=== PATIENT | male | born 1960 | race Caucasian/White ===

== ENCOUNTER 2017-01-20 09:04 | Emergency (ER) | payer OTHER ==
[2017-01-20] MEDS ORDERED: PROMETHAZINE HCL INJ 25 MG in SODIUM CHLORIDE 0.9% 50ML 50 ML IVPB ONE (09:25)
[2017-01-20] MEDS ORDERED: KETOROLAC TROMETHAMINE INJ 60 MG/2 ML VIAL IM ONE (09:25)
[2017-01-20 09:26] VITALS: TEMP 96.9
[2017-01-20] MEDS ORDERED: SODIUM CHLORIDE 0.9% 1000ML 1,000 ML IVS ONE (09:27)
[2017-01-20] MEDS ORDERED: PROMETHAZINE HCL INJ 25 MG/ML VIAL ONE (09:39)
[2017-01-20] MEDS ORDERED: SODIUM CHLORIDE 0.9% 50ML 50 ML ONE (09:39)
--- NOTE | 2017-01-20 10:28 | RAD ---
PROCEDURE: X-ray Chest one view and abdomen three views Clinical History: abd pain with rad to right testicle. Indication: Abdominal pain radiating to the right testicle Comparison: January 12, 2016 Technique: 3.0 views of the abdomen and pelvis and 1.0 view of the chest were done. Findings: There is no gross evidence of free air in the abdomen or the pelvis . The small and large bowel gas pattern does not show any evidence of obstruction, ileus or bowel wall thickening. There is no visualization of radiopaque calculi in the outline of the urinary tract. Small amount of retained fecal material is seen in the proximal large bowel. A benign bone island is seen in the left iliac/ischial bone junction. Degenerative changes are seen in the lower lumbar spine There are no discrete airspace infiltrates or pleural effusions are pneumothoraces. The cardiac and mediastinal silhouette is unremarkable. Impression: There are no acute findings in the chest, abdomen and pelvis Location of Interpretation: [id number] Electronically signed by: Cody Rodney MD 01/20/2017 10:27 AM [employer]
[2017-01-20] MEDS ORDERED: HYDROmorphone HCL INJ 2 MG/ML VIAL IV SCH (11:00)
--- NOTE | 2017-01-20 11:27 | CT ---
PROCEDURE: Abdoment/Pelvis w/o Contrast HISTORY: right testicular pain and hematuria, possible kidney Indication: Evaluation for kidney stones. Right testicular pain Comparison: None Technique: CT of the abdomen and pelvis was done without intravenous contrast. Images were obtained from the lung base to the level of the pubic symphysis in axial plane, followed by orthogonal sagittal and coronal reconstruction. Oral contrast was not given for the study. FINDINGS: Images through the lung bases do not show any focal infiltrates or pleural effusions. The liver, gallbladder, pancreas, spleen and the bilateral adrenal glands appear unremarkable, given the limitation of lack of intravenous contrast. There is right-sided hydroureteronephrosis due to recent passage of a 2 mm calculus seen in the dependent lumen of the urinary bladder on the right side. There is no nephrolithiasis on either side. There is no left-sided hydroureteronephrosis The small bowel appears unremarkable, without any evidence of small bowel obstruction or bowel wall thickening. There is no CT evidence of acute appendicitis, pericecal inflammatory change or ileocecal mesenteric adenitis. The ileocecal junction appears unremarkable. There is no CT evidence of acute colonic diverticulitis or colitis or large bowel obstruction. There is no pathological lymphadenopathy in the retroperitoneum or in the pelvic region. There is no evidence of free fluid or free air in the abdomen or the pelvic region. There is no clinically significant abdominal aortic aneurysm. There is a small fat-containing periumbilical ventral hernia defect. Note is also made of small fat-containing bilateral inguinal hernia defects. The visualized lumbar spine shows grade 1 anterolisthesis of L4 at L5 and degenerative changes at L4/L5 and L5/S1 level. The paravertebral soft tissues are unremarkable. The remainder of the pelvic structures are unremarkable. IMPRESSION: There is right-sided hydroureteronephrosis due to recent passage of a 2 mm calculus seen in the dependent lumen of the urinary bladder on the right side. There is a small fat-containing periumbilical ventral hernia defect. Note is also made of small fat-containing bilateral inguinal hernia defects. Electronically signed by: Cody Rodney MD 01/20/2017 11:27 AM TECHNOLOGY TEACHER
--- NOTE | 2017-01-20 12:00 | ED.PDOC ---
History of Present Illness - General Chief Complaint: Problem Stated Complaint: RIGHT TESTICULAR PAIN Time Seen by Provider: 01/20/17 09:23 Source: patient Exam Limitations: no limitations - History of Present Illness Initial Comments: the patient is a 56-year-old male presenting to the emergency room secondary to pain in his right testicle and radiates up towards the abdomen on the same side. It started approximately 3 AM this morning fairly abruptly. He has not had any kidney stones in the past. He does have a history of prostate cancer with resection. He has not had a new urinary symptoms prior to this. The pain has been fairly severe and fairly constant. No back pain. No previous kidney stones. No syncope or near syncope. Timing/Duration: 4-6 hours Severity: severe Improving Factors: nothing Worsening Factors: nothing Associated Symptoms: diaphoresis, loss of appetite, malaise, nausea/vomiting Allergies/Adverse Reactions: Allergies NO KNOWN ALLERGY Allergy (Verified 01/07/16 09:16) Home Medications: Ambulatory Orders B-Complex Vitamins [B Complex] 1 cap PO DAILY 09/01/15 Brimonidine Tartrate-Timolol M [Combigan 0.2-0.5 %] 1 shelley OP BID 09/01/15 Cranberry (Vaccinium Macrocarp [Cranberry] 300 mg PO DAILY 09/01/15 Eszopiclone [Lunesta] 1 mg PO PRN 09/01/15 Folic Acid,B6,B12 [FOLTX] 1 ea PO DAILY 09/01/15 Glucosamine-Chondroitin [Osteo Bi-Flex Regular Str 250-200 mg] 1 tab PO BID Omeprazole [Prilosec Cap] 20 mg PO BID 09/01/15 Tramadol HCl 50 mg PO PRN 09/01/15 Naproxen 250 mg PO BID #10 tab 01/07/16 Ondansetron Odt [Zofran Odt] 8 mg PO BID #7 tab 01/07/16 Pantoprazole Sodium [Protonix] 40 mg PO ACBK #7 tab 01/07/16 Bifidobacterium Infantis [Align] 8 mg PO BID #30 cap 01/12/16 Linezolid [Zyvox] 600 mg PO BID #14 tab 01/12/16 Ppcqjtixjrpki-Qjyy-Vvichiqicu [Fioricet] 1 ea PO Q8H PRN #21 tab 01/20/17 Cephalexin Monohydrate [Keflex] 500 mg PO Q8H #12 cap 01/20/17 Review of Systems - Review of Systems Constitutional: States: diaphoresis EENTM: States: no symptoms reported Respiratory: States: no symptoms reported Cardiology: States: no symptoms reported Gastrointestinal/Abdominal: States: abdominal pain, nausea, vomiting Genitourinary: States: other - right testicular pain without swelling Musculoskeletal: States: no symptoms reported Skin: States: no symptoms reported Neurological: States: no symptoms reported Endocrine: States: no symptoms reported All other Systems: No Change from Baseline Past Medical History (General) - Patient Medical History Hx Seizures: No Hx Stroke: No Hx Asthma: No Hx of COPD: No Hx Cardiac Disorders: No Hx Congestive Heart Failure: No Hx Pacemaker: No Hx Hypertension: No Hx Diabetes: No Hx Cancer: Yes - PROSTATE Hx MRSA: No MRSA Source:: Wound Surgical History: other - Vaccination History Hx Tetanus, Diphtheria Vaccination: Yes Hx Influenza Vaccination: Yes Hx Pneumococcal Vaccination: Yes - Social History Hx Tobacco Use: No Hx Alcohol Use: No Hx Substance Use: No Hx Substance Use Treatment: No Hx Depression: No Hx Physical Abuse: No Hx Emotional Abuse: No - Female History Patient : No Family Medical History - Family History Mother Living Status: Still Living Hx Family Cancer: Yes Hx Family;Other: aneurysm Physical Exam - Physical Exam General Appearance: Alert, Anxious, Obvious distress Eye Exam: bilateral normal Ears, Nose, Throat: hearing grossly normal, normal ENT inspection, normal pharynx Neck: non-tender, full range of motion, supple, normal inspection Respiratory: chest non-tender, lungs clear, normal breath sounds, no respiratory distress, no accessory muscle use Cardiovascular/Chest: normal peripheral pulses, regular rate, rhythm, no edema Peripheral Pulses: radial,right: 2+, radial,left: 2+, dorsalis pedis,right: 2+, dorsalis pedis,left: 2+, posterior tibialis,right: 2+, posterior tibialis,left: 2+ Gastrointestinal/Abdominal: normal bowel sounds, non tender, soft Rectal Exam: deferred, other - right and left testicles are normal by palpation. Movement of the right testicle does not increase or decrease pain. External phallus appears normal. No discharge. Back Exam: normal inspection, no CVA tenderness, no vertebral tenderness Extremity: normal range of motion, non-tender, normal inspection, no pedal edema , normal capillary refill Neurologic: alert, normal mood/affect, oriented x 3 Skin Exam: normal color Comments: Vital Signs - 24 hr 01/20/17 01/20/17 01/20/17 09:18 10:05 11:20 Temperature 96.9 F L Pulse Rate [LA] 117 H 64 66 Respiratory 16 16 16 Rate Blood Pressure 179/117 177/104 158/103 [LEFT BRACHIAL] O2 Sat by Pulse 96 97 96 Oximetry Progress - Progress Progress: 01/20/17 12:03 the patient is a 56-year-old male presenting with symptoms consistent with right-sided ureterolithiasis. The patient has received IM Toradol along with IV Dilaudid and some IV fluids. CT scan and resolution of the patient's pain is consistent with the patient having just passed a right-sided kidney stone 2 mm in diameter. The patient needs to increase his fluid intake. He can take ibuprofen or Aleve twice daily for the next 2-3 days to help reduce pain. He will also be written for Fioricet for as needed use. Additionally I will place him on Keflex for 3 days to prevent infection of his urinary tract. He has had urosepsis before. Additionally CT scan of the abdomen and pelvis did show small fat-containing bilateral inguinal hernias and a small fat- containing umbilical hernia. He appears to be asymptomatic from these at this time but if symptoms develop in these areas then they may need to be addressed. ER warnings are given for any acute worsening. Keep well hydrated. 01/20/17 12:05 - Results/Orders Results/Orders: CT scan of abdomen and pelvis without contrast shows mild right-sided hydroureteronephrosis with what appears to be a 2 mm stone that is just passed in the bladder. note is also made of small bilateral fat-containing inguinal hernias and a small fat-containing ventral hernia. Laboratory Results - last 24 hr 01/20/17 01/20/17 09:38 09:46 WBC 5.5 RBC 4.58 L Hgb 13.2 L Hct 39.3 L MCV 85.8 MCH 28.8 MCHC 33.7 RDW 14.6 H Plt Count 170 MPV 8.0 Absolute Neuts (auto) 3.70 Absolute Lymphs (auto) 1.30 Absolute Monos (auto) 0.30 Absolute Eos (auto) 0.10 Absolute Basos (auto) 0.00 Neutrophils % 67.8 Lymphocytes % 23.2 Monocytes % 6.0 Eosinophils % 2.5 Basophils % 0.5 D-Dimer, Quantitative 305 H* Sodium 143 Potassium 4.2 Chloride 107 Carbon Dioxide 27 Anion Gap 13.2 BUN 13 Creatinine 1.10 BUN/Creatinine Ratio 11.8 Random Glucose 114 H Serum Osmolality 286.0 Calcium 8.8 Total Bilirubin 0.4 AST 25 ALT 27 Alkaline Phosphatase 54 Serum Total Protein 7.1 Albumin 4.2 Globulin 2.9 Albumin/Globulin Ratio 1.4 Amylase 42 Total PSA 0.01 Urine Color Yellow Urine Appearance Clear Urine pH 6.5 Ur Specific Supai 1.020 Urine Protein Negative Urine Glucose (UA) Negative Urine Ketones Negative Urine Blood Moderate H Urine Nitrite Negative Urine Bilirubin Negative Urine Urobilinogen 0.2 Ur Leukocyte Esterase Negative Urine RBC 10-20 H Urine WBC 0 Ur Epithelial Cells 1-3 Urine Bacteria 0 Departure - Departure Clinical Impression: Calcium ureterolithiasis Disposition: Discharge to Home or Self Care Condition: Fair Departure Forms: ED Discharge - Pt. Copy, Patient Portal Self Enrollment Instructions: DI for Kidney Stones Diet: regular diet Activity: increase activity as tolerated Referrals: Regis Plaza III, MD [Primary Care Provider] - 1-2 Weeks Prescriptions: Wdzqxwxbitgmi-Kqpi-Ruofigfzit [Fioricet] 1 ea PO Q8H PRN #21 tab PRN Reason: Pain Cephalexin Monohydrate [Keflex] 500 mg PO Q8H #12 cap Home Medications: Ambulatory Orders B-Complex Vitamins [B Complex] 1 cap PO DAILY 09/01/15 Brimonidine Tartrate-Timolol M [Combigan 0.2-0.5 %] 1 shelley OP BID 09/01/15 Cranberry (Vaccinium Macrocarp [Cranberry] 300 mg PO DAILY 09/01/15 Eszopiclone [Lunesta] 1 mg PO PRN 09/01/15 Folic Acid,B6,B12 [FOLTX] 1 ea PO DAILY 09/01/15 Glucosamine-Chondroitin [Osteo Bi-Flex Regular Str 250-200 mg] 1 tab PO BID Omeprazole [Prilosec Cap] 20 mg PO BID 09/01/15 Tramadol HCl 50 mg PO PRN 09/01/15 Naproxen 250 mg PO BID #10 tab 01/07/16 Ondansetron Odt [Zofran Odt] 8 mg PO BID #7 tab 01/07/16 Pantoprazole Sodium [Protonix] 40 mg PO ACBK #7 tab 01/07/16 Bifidobacterium Infantis [Align] 8 mg PO BID #30 cap 01/12/16 Linezolid [Zyvox] 600 mg PO BID #14 tab 01/12/16 Xwygwobcehgtg-Stjh-Pgteizzste [Fioricet] 1 ea PO Q8H PRN #21 tab 01/20/17 Cephalexin Monohydrate [Keflex] 500 mg PO Q8H #12 cap 01/20/17 Additional Instructions: the patient is a 56-year-old male presenting with symptoms consistent with right-sided ureterolithiasis. The patient has received IM Toradol along with IV Dilaudid and some IV fluids. CT scan and resolution of the patient's pain is consistent with the patient having just passed a right-sided kidney stone 2 mm in diameter. The patient needs to increase his fluid intake. He can take ibuprofen or Aleve twice daily for the next 2-3 days to help reduce pain. He will also be written for Fioricet for as needed use. Additionally I will place him on Keflex for 3 days to prevent infection of his urinary tract. He has had urosepsis before. Additionally CT scan of the abdomen and pelvis did show small fat-containing bilateral inguinal hernias and a small fat- containing umbilical hernia. He appears to be asymptomatic from these at this time but if symptoms develop in these areas then they may need to be addressed. ER warnings are given for any acute worsening. Keep well hydrated.
[2017-01-20 15:02] VITALS: BP 155/94; O2SAT 98
== END 2017-01-20 12:50 | disposition home or self-care (01) ==
LOC: ER 09:04
DX: N20.1 Calculus of ureter (principal); Z85.46 Personal history of malignant neoplasm of prostate; Z79.899 Other long term (current) drug therapy

== ENCOUNTER → 2017-06-21 | Outpatient (CLI) | payer OTHER ==
--- NOTE | 2017-06-24 09:31 | RAD ---
EXAM DESCRIPTION: Chest,2 Views CLINICAL HISTORY: ECG COMPARISON: January 12, 2016 TECHNIQUE: PA/lateral FINDINGS: Cardiomediastinal silhouette and pulmonary vascularity are within normal limits. Lungs are clear without focal consolidations. Bilateral costophrenic angles are sharp. No pneumothorax. Degenerative endplate spurring of the thoracic spine. IMPRESSION: No radiographic evidence for acute cardiopulmonary process. Electronically signed by: Regis Flanagan MD 06/24/2017 9:30 AM CDT
== END ==
LOC: LAB 08:25
PROVIDERS: ATTEND Orthopaedic Surgery
DX: Z01.818 Encounter for other preprocedural examination (principal)

== ENCOUNTER → 2017-07-04 | Outpatient (CLI) | payer OTHER | END | disposition home or self-care (01) | LOC: RESP 08:14 | PROVIDERS: ATTEND Orthopaedic Surgery | DX: Z01.818 Encounter for other preprocedural examination (principal) ==

== ENCOUNTER 2017-07-16 08:00 | Inpatient (IN) | payer OTHER ==
--- NOTE | 2017-07-12 08:49 | HP ---
CHIEF COMPLAINT: Left knee pain. HISTORY OF PRESENT ILLNESS: Mr. Coronado is a 56-year-old male with a history of arthritis of the knee. He has had multiple injections in the knee. He has tried anti-inflammatories as well as physical therapy. Unfortunately, he has failed to gain relief with these conservative measures and therefore has requested operative intervention. We discussed operative interventions to include knee arthroscopy versus total knee arthroplasty. Because of the variables with results and less durability with knee arthroscopy in arthritic knees, he has requested total knee arthroplasty. After discussing the risks, benefits and alternatives to that, the patient has given informed consent. PAST SURGICAL HISTORY: 1. Prostatectomy. 2. Knee replacement. MEDICATIONS: 1. Aleve. 2. Pvons-Rw-Yqjg ALLERGIES: NO KNOWN DRUG ALLERGIES. CODE STATUS: Full code. IMMUNIZATIONS: Up to date. SOCIAL HISTORY: The patient does not smoke or use any illicit drugs. He does drink on occasion. FAMILY HISTORY: None pertinent to today's complaint. REVIEW OF SYSTEMS: Negative except as indicated in the History of Present Illness. PHYSICAL EXAMINATION: VITAL SIGNS: Blood pressure 174/105. Pulse 78. Height 6'1". Weight 260. MENTAL STATUS: The patient is awake, alert, and is able to give a good history and participate in the physical. The patient is oriented to person, place and time. SKIN: Normal tone and turgor. HEENT: Normocephalic, atraumatic. Pupils equal, round and reactive. Mucosal membranes are moist. NECK: Normal range of motion. No thyromegaly, no lymphadenopathy. CHEST: Normal respiratory excursion. CARDIAC: Regular rate and rhythm. No murmurs, rubs or gallops. MUSCULOSKELETAL: Bilateral upper extremities are without deformity and he has 5 /5 strength. Sensation is intact. They are warm and well perfused. There is no crepitus. The right knee shows well-healed scar anteriorly and he has full range of motion of the hip. He has full extension of the knee. No varus/ valgus or anterior/positive laxity. Sensation is intact. Strength is 5/5. The left lower extremity shows full range of motion of the hip. Knee range of motion is from full extension to 120 degrees with crepitus throughout and a slight varus deformity. The entire extremity is warm and well perfused and strength is 5/5. IMAGING: X-rays show advanced arthritis. ASSESSMENT: 1. Osteoarthritis. PLAN: The plan at this point is for total knee arthroplasty. We have discussed the risks, benefits, and alternatives to that and the patient has given informed consent. #[id number] [facility]
[~2017-07-16 08:00] MED LIST: ACETAMINOPHEN IV 1000MG 100 ML ONE; BUPIVACAINE 0.25% W/EPI 50 ML VIAL INJ ONE; LACTATED RINGERS 1,000 ML ONE; MIDAZOLAM INJ 5 MG/5 ML VIAL ONE; MORPHINE SULFATE *EPIDURAL* 0.5 MG/ML VIAL ONE; SODIUM CHL 0.9% 100ML MINI-BAG 100 ML IVPB ONE; SODIUM CHLORIDE 0.9% 100ML 100 ML IVPB ONE; SODIUM CHLORIDE 0.9% 250ML 250 ML ONE; TRANEXAMIC ACID 1,000 MG/10 ML VIAL ONE; VANCOMYCIN HCL INJ 1,000 MG VIAL IVPB ONE; ceFAZolin SODIUM 1 GM VIAL ONE; fentaNYL CITRATE INJ 50 MCG/ML AMP ONE
[2017-07-16] MEDS ORDERED: PROMETHAZINE HCL INJ 25 MG in SODIUM CHLORIDE 0.9% 50ML 50 ML IVPB PRN (09:18)
[2017-07-16] MEDS ORDERED: TRANEXAMIC ACID INJ 1,000 MG in SODIUM CHLORIDE 0.9% 100ML 100 ML IVPB ONE (09:18)
[2017-07-16] MEDS ORDERED: PROMETHAZINE HCL INJ 12.5 MG in SODIUM CHLORIDE 0.9% 50ML 50 ML IVPB PRN (09:18)
[2017-07-16] MEDS ORDERED: DEX 5% W/NACL 0.45% 1000ML 1,000 ML IVS PRN (09:18)
[2017-07-16] MEDS ORDERED: ACETAMINOPHEN 500 MG TAB PO PRN (09:18)
[2017-07-16] MEDS ORDERED: BENZOCAINE-MENTH LOZ (CEPACOL) 1 EA LOZ MT PRN (09:18)
[2017-07-16] MEDS ORDERED: ACETAMINOPHEN 325 MG TAB PO PRN (09:18)
[2017-07-16] MEDS ORDERED: MORPHINE SULFATE INJ 10 MG/ML VIAL IM PRN (09:18)
[2017-07-16] MEDS ORDERED: ONDANSETRON INJ 4 MG/2 ML VIAL IV PRN (09:18)
[2017-07-16] MEDS ORDERED: ALUMINUM & MAGNESIUM HYDROXIDE 30 ML UD PO PRN (09:18)
[2017-07-16] MEDS ORDERED: BISACODYL SUPPOSITORY 10 MG PR PRN (09:18)
[2017-07-16] MEDS ORDERED: ZOLPIDEM TARTRATE 5 MG TAB PO PRN (09:18)
[2017-07-16] MEDS ORDERED: NALOXONE HCL INJ 0.4 MG/ML VIAL IV PRN (09:18)
[2017-07-16] MEDS ORDERED: MORPHINE PCA 1 MG/ML 100ML 1 BAG in PREMIX BAG 1 BAG IVPB SCH (09:30)
[2017-07-16] MEDS ORDERED: MORPHINE PCA 1 MG/ML 100 ML BAG IVPB ONE (09:49)
[2017-07-16] MEDS ORDERED: diphenhydrAMINE HCL 50 MG/ML VIAL ONE (10:28)
--- NOTE | 2017-07-16 11:42 | PCM.CORE ---
Physician DVT/VTE - Prophylaxis Currently: Patient already on anticoagulation therapy - Nurse DVT Assessment & Total Each Risk Factor Represents 5 Points: Elective Arthtroplasty Each Risk Factor Represents 2 Points: Malignancy (present/past) Each Risk Factor Represents 1 Point: Hx Major Surgery <1month Each Risk Factor is 1 Point: Obesity (BMI >25) DVT Assessment Score: 9 - 5 or more Very High Risk Treatments: Early Ambulation *, Sequential Compression Device Pharmacological: Enoxaparin 30mg SQ BID
[2017-07-16] MEDS ORDERED: raNITIdine HCL INJ 25 MG/ML VIAL IV ONE (12:00)
[2017-07-16] MEDS ORDERED: SODIUM CHLORIDE 0.9% 50 ML VIAL INJ ONE (12:00)
[2017-07-16] MEDS ORDERED: PROPOFOL 200 MG/20 ML VIAL IV ONE (12:00)
[2017-07-16] MEDS ORDERED: DEXAMETHASONE INJ 10 MG/ML VIAL IV ONE (12:00)
[2017-07-16] MEDS ORDERED: diphenhydrAMINE HCL 50 MG/ML VIAL IV ONE (12:00)
[2017-07-16] MEDS ORDERED: PHENYLEPHRINE INJ 1ML 10 MG/ML VIAL IV ONE (12:00)
[2017-07-16] MEDS ORDERED: LIDOCAINE 1% 10 ML VIAL INJ ONE (12:00)
--- NOTE | 2017-07-16 13:10 | RAD ---
EXAM DESCRIPTION: Knee,Left 2 or More Views CLINICAL HISTORY: TKA COMPARISON: None. TECHNIQUE: 2 views left FINDINGS: A left total knee arthroplasty is observed. Postoperative air is observed anteriorly. Positioning of the prosthesis appears near-anatomic. IMPRESSION: Left total knee arthroplasty. Electronically signed by: Regis Clay MD 07/16/2017 1:08 PM CDT
[2017-07-16] MEDS: IV SET AND CAP CHANGE INJ INJ SCH (13:56)
--- NOTE | 2017-07-16 14:06 | PN ---
DATE: 07-16-17 SUBJECTIVE: Postoperative check. He is doing well and his pain is well controlled. OBJECTIVE: He is afebrile. Vital signs are stable. Dressing is clean, dry and intact. ASSESSMENT: 1, Status post total knee arthroplasty. PLAN: Begin weight bearing as tolerated on postoperative day #1. [facility][id number] [facility]
--- NOTE | 2017-07-16 14:49 | CONS ---
SUPERVISING PHYSICIAN: Ollie Lagos MD HISTORY OF PRESENT ILLNESS: Mr. Coronado is a 56 year-old male patient that has a history of arthritis involving the knees, especially the left , and having previously had a right total knee arthroplasty completed in 2010. He has had multiple attempts at conservative treatment as an outpatient including inflammatories as well as physical therapy. He has failed to have any significant relief from the pain and requested operative intervention for a total knee arthroplasty by Dr. Tariq Barnes. The patient was taken to surgery today and had a left total knee arthroplasty and was seen immediately in postoperative state. He was comfortable and tolerated the procedure well. PAST MEDICAL HISTORY: 1. Hyperlipidemia. 2. Gastroesophageal reflux disease. 3. B12 deficiency. 4. History of prostate cancer in 2014 with having a total prostatectomy. 5. Left eye glaucoma. 6. History of urosepsis with a multi-drug resisting enterococcus requiring IV vancomycin and outpatient dry blocks. PAST SURGICAL HISTORY: 1. Total right knee arthroplasty in August [address] Rodríguez. 2. Tonsillectomy. 3. 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 Redman. 4. Bilateral carpal tunnel, 1992, 1993. 5. Lipoma removed from right arm in 1998. 6. Right eye surgery for an obstructed tear duct. 7. Multiple surgeries on right eye secondary to traumatic injury. 8. Radical prostatectomy by Dr. Delarosa in January 2015. CURRENT MEDICATIONS: 1. Aleve 220 mg tablet, 2 twice a day. 2. Combigan 0.2%/0.5% ophthalmic solution, 1 drop to affected eye every 12 hours. 3. Xrotd-Tb-Qobt twice a day. 4. Tramadol 50 mg p.o. every 4 hours as needed for pain. 5. Prilosec sqkb-tbd-wprpwlk 20 mg tablets, delayed released, 2 daily. ALLERGIES: DESICCARE FAMILY HISTORY: Significant for lung cancer, coronary artery disease, diabetes. 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 He has no history of smoking and only drinks alcohol on rare occasions. He does not use any illicit drugs. REVIEW OF SYSTEMS: GENERAL: No reported unintentional weight loss, fever or chills. HEENT: No headaches, syncopal episodes or vision changes or decreased hearing. LUNGS: No shortness of breath, wheezing, cough, congestion. CARDIOVASCULAR: No chest pain, palpitations, syncopal episodes or presyncopal episodes. GASTROINTESTINAL: No nausea, vomiting, diarrhea. GENITOURINARY: Has history of stricture formation having previously utilized self-catheterization and has a Messina catheter placed without complications prior to surgery yesterday. He has a leg bag in placed. EXTREMITIES: As noted I history of present illness. NEUROLOGICAL: Denies headaches, syncopal episodes or presyncopal episodes or any neurological deficits. PHYSICAL EXAMINATION: VITAL SIGNS: Temperature 97.5, pulse 94, blood pressure 144/85, respirations 15 , saturation 93% on nasal cannula at rest with 2 liters. GENERAL: The patient is resting comfortably, appears to be in no distress. He is sleepy but easily arousable and is alert x3. HEENT: Tympanic membranes are clear bilaterally. Oropharynx is pink and moist without any lesions. NECK: Supple, non-tender with full range of motion. No jugular venous distention. CHEST: Lungs clear to auscultation without rhonchi, wheezing or rales. HEART: Regular rate and rhythm without appreciable murmurs, rubs, or gallops. ABDOMEN: Soft, non-tender with positive bowel sound. EXTREMITIES: No cyanosis, clubbing, or edema. Left knee has a bulky surgical dressing in place iceman distally. Pulses are strong, capillary refill is brisk. NEUROLOGIC: Sleepy but arousable with no focal neurological deficits noted. . LABORATORY: Urinalysis prior to surgery with leg bag in place from Messina catheter shows a small amount of blood with 10 to 20 RBCs on microscopic. Otherwise, within normal limits. ASSESSMENT: 1. Immediate postoperative day #0 for total left knee arthroplasty performed by Dr. Tariq Barnes. 2. Arthritis involving the left knee failing to respond to outpatient conservative treatment measures requiring surgical intervention for symptom control with surgery performed as noted above by Dr. Tariq Barnes. 3. History of prostate cancer with a radical prostatectomy in 2015. 4. History of chronic bladder outlet strictures previously requiring self- administration urethral dilation requiring Messina catheter placement prior to surgery. 5. Gastroesophageal reflux disease. PLAN: The patient will be followed postoperatively as he continues with his physical therapy rehabilitation efforts. Given his history of previous urinary tract infections and urinary strictures, Messina catheter was placed prior to surgery and he has a leg bag in place. Will plan to leave this in place until further instructions from Dr. Delarosa's office in regards to removal and monitor closely for any signs of infection. He will be on DVT prophylaxis as per protocol. We anticipate length of stay to be 2 to 3 days and until discharge at the discretion of Dr. Barnes and physical therapy, will work with social media developer , Daniela, in efforts to finalize discharge planning for outpatient therapy. Until discharge, we will monitor and treat appropriately. #[id number] [facility]
[2017-07-16] MEDS ORDERED: CEFAZOLIN SODIUM 2 GRAMS IV 50 ML IVPB ONE ×2 (15:33→20:11)
[2017-07-16] MEDS: CEFAZOLIN SODIUM 2 GRAMS IV 2 GM in PREMIX BAG 1 BAG IVPB SCH ×2 (15:36→23:36)
[2017-07-16] MEDS ORDERED: ceFAZolin SODIUM 2 GM in SODIUM CHLORIDE 0.9% 100ML 100 ML IVPB SCH (16:00)
[2017-07-16] MEDS ORDERED: VANCOMYCIN HCL INJ 1,000 MG VIAL IVPB ONE (16:07)
[2017-07-16] MEDS ORDERED: SODIUM CHLORIDE 0.9% 250ML 250 ML ONE (16:07)
[2017-07-16] MEDS: CELECOXIB 100 MG CAP PO SCH (16:13)
[2017-07-16] MEDS: VANCOMYCIN HCL INJ 1,000 MG in SODIUM CHLORIDE 0.9% 250ML 250 ML IVPB SCH (17:43)
[2017-07-16] MEDS ORDERED: ENOXAPARIN SODIUM 30 MG/0.3 ML SYG SUBCU ONE (20:11)
[2017-07-16] MEDS: DOCUSATE CALCIUM 240 MG CAP PO SCH (21:04)
[2017-07-16] MEDS: ENOXAPARIN SODIUM 30 MG/0.3 ML SYG SUBCU SCH (21:04)
[2017-07-16] MEDS: diphenhydrAMINE HCL 25 MG CAP PO PRN (21:33)
[2017-07-16] MEDS: TEMAZEPAM 15 MG CAP PO PRN (21:33)
[2017-07-16] MEDS: CYCLOBENZAPRINE HCL 10 MG TAB PO PRN (21:33)
[2017-07-16] MEDS: SODIUM CHLORIDE 0.9% (FLUSH) 10 ML SYG IV PRN (23:36)
[2017-07-17] MEDS ORDERED: SODIUM CHLORIDE 0.9% 250ML 250 ML ONE (04:39)
[2017-07-17] MEDS ORDERED: VANCOMYCIN HCL INJ 1,000 MG VIAL IVPB ONE (04:40)
[2017-07-17] MEDS: MAGNESIUM HYDROXIDE 30 ML UD PO PRN (04:42)
[2017-07-17] MEDS: MORPHINE SULFATE INJ 10 MG/ML VIAL IV PRN ×2 (04:51→15:04)
[2017-07-17] MEDS: diphenhydrAMINE HCL 25 MG CAP PO PRN ×2 (04:51→15:06)
[2017-07-17] MEDS: SODIUM CHLORIDE 0.9% (FLUSH) 10 ML SYG IV PRN (04:51)
[2017-07-17] MEDS: VANCOMYCIN HCL INJ 1,000 MG in SODIUM CHLORIDE 0.9% 250ML 250 ML IVPB SCH (05:54)
[2017-07-17] MEDS ORDERED: MAGNESIUM OXIDE 400 MG TAB ONE (08:00)
[2017-07-17] MEDS ORDERED: CEFAZOLIN SODIUM 2 GRAMS IV 50 ML IVPB ONE (08:01)
[2017-07-17] MEDS: ENOXAPARIN SODIUM 30 MG/0.3 ML SYG SUBCU SCH ×2 (08:16→21:44)
[2017-07-17] MEDS: MAGNESIUM OXIDE 400 MG TAB PO SCH (08:16)
[2017-07-17] MEDS: CELECOXIB 100 MG CAP PO SCH ×2 (08:16→17:43)
[2017-07-17] MEDS: CEFAZOLIN SODIUM 2 GRAMS IV 2 GM in PREMIX BAG 1 BAG IVPB SCH (08:23)
[2017-07-17] MEDS: CYCLOBENZAPRINE HCL 10 MG TAB PO PRN ×2 (09:41→17:41)
--- NOTE | 2017-07-17 09:44 | OP ---
DATE OF PROCEDURE: 07/16/17 PREOPERATIVE DIAGNOSIS: 1. Osteoarthritis of the knee. POSTOPERATIVE DIAGNOSIS: 1. Osteoarthritis of the knee. PROCEDURE: 1. Total knee arthroplasty. SURGEON: Tariq Barnes MD. CAKE PUNCHER: Remberto Sharif CST, SA-C. ANESTHESIA: General. COMPLICATIONS: None. FINDINGS: Severe arthritis of the knee. INDICATION: Mr. Coronado has a history of severe knee pain for which he has tried multiple conservative measures. Unfortunately, he has been unable to get relief with those measures. Because of his ongoing pain and the severity of the symptoms, he has requested operative intervention. After discussing the risks, benefits and alternatives to that, the patient has given informed consent for total knee arthroplasty. PROCEDURE: The patient was brought to the Operating Room and placed in supine position. General anesthesia was induced and the patient's leg was sterilely prepped and draped. Following prepping and draping, the distal femur was exposed and using an intramedullary guide, the distal femoral cut was made. The appropriate sized cutting block was measured, pinned into place, and the anterior, posterior, and chamfer cuts were made. The ACL was transected and the tibia was subluxed. Both the medial and lateral menisci were removed. An intramedullary guide was used to make the proximal tibial cut. The appropriate sized base plate was placed and a trial polyethylene was placed. The trial femur was placed, the knee was reduced, and the knee was taken through a range of motion. The knee was stable in anterior, posterior, varus and valgus stress. The patella tracked anatomically without evidence of subluxation or dislocation. After trialing, the trial components were removed and the bony surfaces were thoroughly irrigated with saline. Following irrigation, the surfaces were dried and the final components were cemented into place. The excess cement was removed and the remaining cement was allowed to cure. The knee was again taken through a range of motion to confirm stability. The wound was then irrigated with saline and closure was performed using PDS to approximate the arthrotomy followed by closure of the subcutaneous tissues with a combination of running and interrupted Monocryl sutures. Sterile dressing was placed. The patient was awoken from anesthesia and taken to Recovery. POSTOPERATIVE INSTRUCTIONS: The patient will be weight-bearing as tolerated on postoperative day 1. COMPONENTS: Perkle Triathlon knee, size 6 femur, size 6 tibia, 9 mm insert. #[id number] [facility]
--- NOTE | 2017-07-17 18:41 | PN ---
DATE: 07/17/17 SUPERVISING PHYSICIAN: Ollie Lagos M.D. SUBJECTIVE: The patient is sitting in the bedside chair today. He continues to have a bulky dressing in place over the knee. He notes that he has had fairly good control of his pain. He did have some issues last night with itching after starting on pain medicine which resolved and was well controlled with Benadryl. He does remain afebrile. OBJECTIVE: VITAL SIGNS: T max 98.4, pulse 104, blood pressure 167/83, respirations 18, satting 94% on room air. It is noted that the patient does have what appears to be some sleep apnea and desaturations on room air down to 87%. Weight 111.6 kg. I's and O's show a negative balance of 620 with 930 in, 1550 out. CHEST: Lungs were clear to auscultation, just slightly diminished towards the bases. HEART: Regular rate and rhythm. ABDOMEN: Obese but soft, non-tender. Positive bowel sounds. EXTREMITIES: A bulky dressing remains in place over the left knee. Pulses distally were strong. Capillary refill was brisk. NEUROLOGIC: He is alert and oriented times three. LABORATORY: Postoperative H&H was 12.8 and 38.6. ASSESSMENT: 1. Postoperative day 1 for total left knee arthroplasty performed by Dr. Tariq Barnes. 2. Arthritis involving the left knee, failed to respond to outpatient conservative treatment measures requiring surgical intervention for symptom control with surgery performed by Dr. Barnes. 3. History of prostate cancer with radical prostatectomy in 2014. 4. History of chronic bladder outlet strictures previously requiring self administration of urethral dilation requiring a Messina catheter placed by Dr. Delarosa prior to surgery with the catheter being removed postoperatively on day 1 with the patient showing no signs of difficulty voiding. 5. Gastroesophageal reflux disease. PLAN: Will continue to follow the patient as he progresses through his postoperative phase with Physical Therapy and under the direction of Orthopedic Services. His Messina was removed today. Will closely monitor his urine output to ensure he is not having any urinary retention. He will again be encouraged to do deep breathing exercises and utilize spirometry to prevent any complications. Will anticipate discharge possibly Saturday with plans for outpatient treatment through the home health with [facility]. Until then, will continue to monitor the patient closely and treat appropriately. #[id number] [facility]
[2017-07-17] MEDS: DOCUSATE CALCIUM 240 MG CAP PO SCH (21:44)
[2017-07-17] MEDS: traMADol HCL 50 MG TAB PO PRN ×2 (21:44)
[2017-07-18] MEDS: diphenhydrAMINE HCL 25 MG CAP PO PRN (04:19)
[2017-07-18] MEDS: traMADol HCL 50 MG TAB PO PRN (04:19)
[2017-07-18] MEDS: CELECOXIB 100 MG CAP PO SCH ×2 (07:07→16:41)
[2017-07-18] MEDS: CYCLOBENZAPRINE HCL 10 MG TAB PO PRN ×2 (07:07→15:00)
[2017-07-18] MEDS: HYDROcodone 5MG/APAP 325MG 1 EA TAB PO PRN ×5 (08:04→16:41)
--- NOTE | 2017-07-18 08:40 | PN ---
DATE: 07/17/17 SUBJECTIVE: Salvador is doing pretty well and he had great pain control overnight. Right now, he is having a little bit more pain because the spinal wore off. OBJECTIVE: Afebrile. Vital signs stable. Dressing is clean, dry and intact. ASSESSMENT: Status post total knee arthroplasty. PLAN: He will begin weight-bearing as tolerated. We will also progress his CPM as tolerated. #[id number] [facility]
--- NOTE | 2017-07-18 08:45 | PN ---
DATE: 07/18/17 SUBJECTIVE: Salvador is doing well. He has adequate pain control right now. OBJECTIVE: Afebrile. Vital signs stable. The wound is clean. There are no signs or symptoms of infection. ASSESSMENT: Status post total knee arthroplasty. PLAN: He will continue with physical therapy with range of motion and weight- bearing as tolerated. #[id number] [facility]
[2017-07-18] MEDS: MAGNESIUM OXIDE 400 MG TAB PO SCH (09:09)
[2017-07-18] MEDS: SODIUM CHLORIDE 0.9% (FLUSH) 10 ML SYG IV SCH ×2 (09:10→20:23)
[2017-07-18] MEDS: MAGNESIUM HYDROXIDE 30 ML UD PO PRN ×2 (09:10→20:31)
[2017-07-18] MEDS: ENOXAPARIN SODIUM 30 MG/0.3 ML SYG SUBCU SCH ×2 (09:42→21:29)
--- NOTE | 2017-07-18 14:58 | PN ---
DATE: 07/18/17 SUBJECTIVE: The patient is up sitting in the chair. He has tolerated his increased activity with rehabilitation quite well. He is now in the second day postoperative left total knee replacement. His right knee was replaced previously a few years ago. No significant sleep problems, but he did have some desaturation on his pulse oximetry on the first night after surgery which may have been medication or anesthetic residual. This will be rechecked. OBJECTIVE: VITAL SIGNS: Afebrile. Pulse 114. Blood pressure 125/88. Pulse oximetry 92% on room air. LABORATORY: Hemoglobin postoperatively is 12.8. Urinalysis showed some hematuria, rare bacteria. No cultures obtained. ASSESSMENT: 1. Postoperative day 2 left total knee arthroplasty for significant osteoarthritis failing to respond to outpatient therapy and requiring surgical intervention to assist with symptom control. 2. Chronic osteoarthritis, especially in the left knee, having failed outpatient conservative treatment and requiring surgical intervention by Dr. Tariq Barnes, orthopedic surgeon. 3. History of prostate cancer. 4. History of bladder outlet obstruction symptoms in the past. 5. Moderate nocturnal pulse oximetry desaturation with repeat followup. PLAN: We will recheck pulse oximetry while sleeping tonight. If significant desaturation is noted, we will consider having respiratory assist in scheduling for a sleep study in the near future. Continue with rehab until able to safely return home. #[id number] [facility]
[2017-07-18] MEDS ORDERED: HYDROcodone 5MG/APAP 325MG 1 EA TAB PO PRN (20:06)
[2017-07-18] MEDS: DOCUSATE CALCIUM 240 MG CAP PO SCH (20:23)
[2017-07-18] MEDS ORDERED: MAGNESIUM HYDROXIDE 30 ML UD PO ONE (20:35)
[2017-07-18] MEDS: HYDROcodone 10MG/APAP 325MG 1 EA TAB PO PRN (21:37)
[2017-07-18] MEDS: TEMAZEPAM 15 MG CAP PO PRN (21:46)
[2017-07-19] MEDS: HYDROcodone 10MG/APAP 325MG 1 EA TAB PO PRN ×4 (04:03→20:04)
[2017-07-19] MEDS: CYCLOBENZAPRINE HCL 10 MG TAB PO PRN ×2 (06:02→17:15)
[2017-07-19] MEDS: CELECOXIB 100 MG CAP PO SCH ×2 (08:15→17:04)
[2017-07-19] MEDS: SODIUM CHLORIDE 0.9% (FLUSH) 10 ML SYG IV SCH ×2 (08:20→21:38)
[2017-07-19] MEDS: MAGNESIUM OXIDE 400 MG TAB PO SCH (08:20)
[2017-07-19] MEDS: IV SET AND CAP CHANGE INJ INJ SCH (08:21)
[2017-07-19] MEDS: ENOXAPARIN SODIUM 30 MG/0.3 ML SYG SUBCU SCH ×2 (10:45→21:39)
--- NOTE | 2017-07-19 17:42 | PN ---
DATE: 07/19/17 SUBJECTIVE: The patient is resting in the bed seemingly having a little increased pain today after putting extra effort into his rehabilitation earlier today. Appetite is good. He is fully awake and alert. OBJECTIVE: Showing some steady improvement. No dressing discharge is evident. His range of motion on the left knee is up to 110 degrees. He is breathing deeply. No shortness of breath or cough. No abdominal pain and a bowel movement last evening. Checking his pulse oximetry during the night to check for any evidence of desaturation. ASSESSMENT: 1. Postoperative day number 3 total left knee arthroplasty for significant osteoarthritis having failed to respond to outpatient therapy and requiring surgical intervention to assist with symptom control. 2. Chronic osteoarthritis, especially the left knee having failed outpatient conservative treatment and requiring surgical intervention. 3. History of prostate cancer. 4. History of bladder outlet obstruction symptoms in the past. 5. Moderate nocturnal pulse oximetry desaturation with repeat followup and close followup is necessary. PLAN: May eventually require sleep study if documented desaturation persists. At the present time, he seems to be comfortable. Anticipate home in the morning with continued outpatient therapy with reevaluation in the morning. To continue on Xarelto 10 mg #8 given to be given 1 daily starting on Saturday morning, the day after his discharge which is tomorrow morning. #[id number] [facility]
[2017-07-19] MEDS ORDERED: BISACODYL SUPPOSITORY 10 MG PR ONE (21:00)
[2017-07-19] MEDS ORDERED: MAGNESIUM HYDROXIDE 30 ML UD PO ONE (21:00)
[2017-07-19] MEDS: DOCUSATE CALCIUM 240 MG CAP PO SCH (21:39)
[2017-07-19] MEDS: TEMAZEPAM 15 MG CAP PO PRN (21:39)
[2017-07-20] MEDS: HYDROcodone 10MG/APAP 325MG 1 EA TAB PO PRN ×2 (02:11→07:44)
[2017-07-20] MEDS: CYCLOBENZAPRINE HCL 10 MG TAB PO PRN ×2 (02:15→07:44)
[2017-07-20 06:09] VITALS: TEMP 98.1
[2017-07-20] MEDS: CELECOXIB 100 MG CAP PO SCH (07:44)
[2017-07-20] MEDS: MAGNESIUM OXIDE 400 MG TAB PO SCH (09:17)
[2017-07-20] MEDS: SODIUM CHLORIDE 0.9% (FLUSH) 10 ML SYG IV SCH (09:17)
[2017-07-20] MEDS: ENOXAPARIN SODIUM 30 MG/0.3 ML SYG SUBCU SCH (09:17)
[2017-07-20 11:24] VITALS: O2SAT 94
[2017-07-20 14:21] VITALS: BP 164/81
--- NOTE | 2017-07-29 09:06 | PN ---
DATE: 07/19/17 SUBJECTIVE: Salvador is doing pretty well and he was up a couple of times yesterday walking. OBJECTIVE: Afebrile. Vital signs stable. Wound is clean. There are no signs or symptoms of infection. ASSESSMENT: Status post total knee arthroplasty. PLAN: He will continue with weight-bearing as tolerated. I encouraged him today to get up more with assistance from the nursing staff to do more ambulation. I have also encouraged him to do some really hard work on improving his range of motion. We are going to see how he is doing tomorrow and then we will make an assessment on whether he is ready to go home. [facility][id number] [facility]
--- NOTE | 2017-07-31 14:34 | DS ---
SUPERVISING PHYSICIAN: Ollie Lagos MD DISCHARGE DIAGNOSIS: 1. Postoperative day #4 total left knee arthroplasty for significant osteoarthritis having failed to respond to outpatient therapy and requiring surgical intervention to assist with symptom control. 2. Chronic osteoarthritis, especially the left knee having failed outpatient conservative treatment and requiring surgical intervention. 3. History of prostate cancer. 4. History of bladder outlet obstruction symptoms in the past. 5. Moderate nocturnal pulse oximetry desaturation with repeat followup and close followup is necessary after discharge for possible sleep apnea referral. HISTORY OF PRESENT ILLNESS: Mr. Coronado is a 56-year-old male patient that has a history of arthritis involving the knees, especially the left , and having previously had a right total knee arthroplasty completed in 2010. He has had multiple attempts at conservative treatment as an outpatient including inflammatories as well as physical therapy. He has failed to have any significant relief from the pain and requested operative intervention for a total knee arthroplasty by Dr. Tariq Barnes. Surgery was completed on 07/16/17. He was followed postoperatively and in stable condition at time of admission. LABORATORY: Postoperative hemoglobin 12.8, hematocrit 38.6. HOSPITAL COURSE: Mr. Coronado as noted in history of present illness had right total knee arthroplasty on 07/16/17. He was followed through his rehabilitation and physical therapy efforts and was medically stable. He did well and was felt well enough to be advanced to the outpatient setting for home health physical therapy. PLAN: Mr. Franco was discharged on 07/20/17 to have close clinical followup with Dr. Barnes as scheduled. His rehabilitation was to continue at [facility]. He was instructed to take new prescriptions as instructed and to resume home medications as directed. He was told to return to the hospital should he have any concerning symptoms. He has a followup appointment on 08/01/17 at 9:30. Prescription at discharge included: 1. Flexeril 10 mg q.8h. as needed. #30. 2. Eure 5/325 1 q.4h. as needed, prescription provided by Dr. Barnes. 3. Xarelto 10 mg, #8. DIET AT DISCHARGE: Regular as tolerated. ACTIVITY: As per physical therapy and walk with a walker only. He may shower. No tub baths. Wound care per Dr. Barnes's instructions at discharge. CONDITION AT DISCHARGE: Stable and improved. #[id number] [facility]
== END 2017-07-20 13:00 | disposition home health service (06) | DRG 470 ==
LOC: AMB 08:00 → MS 11:36
PROVIDERS: ADMIT Orthopaedic Surgery; ATTEND Nurse Practitioner Family
PROC: 0SRD0J9 Replacement of Left Knee Joint with Synthetic Substitute, Cemented, Open Approach (ICD-10-PCS; principal; 2017-07-16 07:00)
DX: M17.12 Unilateral primary osteoarthritis, left knee (principal); L29.9 Pruritus, unspecified; E78.5 Hyperlipidemia, unspecified; K21.9 Gastro-esophageal reflux disease without esophagitis; E53.8 Deficiency of other specified B group vitamins; H40.9 Unspecified glaucoma; Z96.651 Presence of right artificial knee joint; Z79.1 Long term (current) use of non-steroidal anti-inflammatories (NSAID); Z79.899 Other long term (current) drug therapy; Z87.440 Personal history of urinary (tract) infections; Z85.46 Personal history of malignant neoplasm of prostate

== ENCOUNTER → 2018-06-20 | Outpatient (CLI) | payer OTHER | LOC: YCFC.O 08:19 | PROVIDERS: ATTEND Nurse Practitioner Family | DX: Z00.00 Encounter for general adult medical examination without abnormal findings (principal); Z12.5 Encounter for screening for malignant neoplasm of prostate ==

== ENCOUNTER → 2019-12-14 | Outpatient (CLI) | payer OTHER ==
--- NOTE | 2019-12-14 13:49 | CT ---
EXAM DESCRIPTION: Abdoment/Pelvis w/o Contrast CLINICAL HISTORY: 59 years Male, UNSPECIFIED ABDOMINAL PAIN COMPARISON: CT abdomen and pelvis dated 01/20/2017 TECHNIQUE: Contiguous 3 mm axial images were obtained from the lung bases to the level of the proximal femora without the administration of intravenous or oral contrast. Sagittal and coronal reconstructions were reviewed. FINDINGS: Limited evaluation of the solid organs due to the lack of intravenous contrast. THORAX: The imaged lower thorax demonstrates no gross abnormality. LIVER: The liver demonstrates normal size and density with no intrahepatic biliary ductal dilatation. GALLBLADDER: Grossly unremarkable. PANCREAS: Appears normal with no cystic or solid lesions. SPLEEN: Normal ADRENAL GLANDS: Normal with no nodules or masses. KIDNEYS: Nonobstructive 3 mm calculus is noted in the inferior pole of the right kidney. Nonobstructive 3 mm calculus is noted in the upper pole of the left kidney. Mild hydroureter nephrosis of the left kidney secondary to obstruction from two 5 mm calculi in the distal portion of the left ureter. STOMACH: Small hiatal hernia with reflux. The stomach is not well-distended limiting detailed evaluation. SMALL BOWEL: The small bowel loops demonstrate variable degrees of distention with no abnormal dilatation or other signs to suggest bowel obstruction. LARGE BOWEL: Majority of the colon is not well-distended limiting detailed evaluation. Few scattered diverticuli are identified. The appendix is well-visualized and appears normal No evidence of free intraperitoneal air or fluid. RETROPERITONEUM: The abdominal aorta is nonaneurysmal with mild atherosclerosis. The inferior vena cava is normal in size and caliber. No abnormally enlarged retroperitoneal lymph nodes are identified. URINARY BLADDER:The urinary bladder is well-distended with no gross abnormality. The prostate gland and seminal vesicles appear normal. ADDITIONAL FINDINGS: 3 cm umbilical defect with herniation of fat. BONES: Mild degenerative changes are identified in the visualized bones. Right-sided pars defect of L4 with grade 1 anterolisthesis of L4 over L5. IMPRESSION: 1. Mild hydroureteronephrosis of the left kidney secondary to obstruction from two 5 mm calculi in the distal portion of the left ureter. 2. Scattered colonic diverticulosis. This exam was performed according to our departmental dose-optimization program, which includes automated exposure control, adjustment of the mA and/or kV according to patient size and/or use of iterative reconstruction technique. Electronically signed by: Judi Soler MD 12/14/2019 1:47 PM [employer]
== END ==
LOC: CT 09:34
PROVIDERS: ATTEND Family Medicine
DX: N13.2 Hydronephrosis with renal and ureteral calculous obstruction (principal); K57.30 Diverticulosis of large intestine without perforation or abscess without bleeding

== ENCOUNTER 2019-12-17 22:23 | Emergency (ER) | payer BC, OTHER ==
[2019-12-17] MEDS: HYDROmorphone HCL INJ 2 MG/ML VIAL IV ONE (23:15)
[2019-12-17] MEDS: KETOROLAC TROMETHAMINE INJ 30 MG/ML VIAL IV ONE (23:15)
[2019-12-17] MEDS: ONDANSETRON INJ 4 MG/2 ML VIAL IV ONE (23:17)
[2019-12-17] MEDS ORDERED: SODIUM CHLORIDE 0.9% 1000ML 1,000 ML ONE (23:36)
[2019-12-17] MEDS: SODIUM CHLORIDE 0.9% 1000ML 1,000 ML IVS ONE (23:43)
[2019-12-18] MEDS: HYDROmorphone HCL INJ 2 MG/ML VIAL IV ONE (00:30)
--- NOTE | 2019-12-18 00:32 | CT ---
EXAM: CT abdomen and pelvis without contrast. INDICATION: Abdominal pain, acute. TECHNIQUE: Contiguous axial CT images of the abdomen and pelvis. Intravenous contrast: Absent. Oral contrast: Absent. Protocol: Renal stone. DLP 1468 mGy-cm. This exam was performed according to our departmental dose-optimization program, which includes automated exposure control, adjustment of the mA and/or kV according to patient size and/or use of iterative reconstruction technique. COMPARISON: 12/14/2019. FINDINGS: Lower chest: Partially imaged. Lung bases: Unremarkable. Cardiac apex: Unremarkable. Solid abdominal viscera: Limited by lack of intravenous contrast. Liver: Unremarkable. Gallbladder: Unremarkable. Pancreas: Unremarkable. Spleen: Unremarkable. Adrenal glands: Unremarkable. Right kidney: Again noted are punctate nonobstructing stones along the upper and lower pole. Left kidney: The previously described two stones within the distal left ureter have slightly advanced into the left UVJ with the stones measuring approximately 3 mm each. There is persistent mild hydroureter and hydronephrosis. There is an additional punctate stone along the upper pole. Urinary bladder: Unremarkable. Abdominal aorta: Unremarkable. Peritoneal: Free fluid: None. Free air: None. Other: No pathologic sized lymph nodes in the upper abdomen. There is a fat-containing umbilical hernia. Bowel: Stomach: Unremarkable. Small bowel: Unremarkable. Appendix: Unremarkable. Colon: Scattered diverticula without evidence of diverticulitis. Rectum: Unremarkable. Prostate: Unremarkable. Bones: Mild grade 1 anterolisthesis of L4 over L5. Multilevel spondylosis of the lumbar spine. IMPRESSION: The previously described two 3 mm stones within the distal left ureter have slightly advanced further into the UVJ and cause grossly stable mild left-sided hydroureter and hydronephrosis. Electronically signed by: Sony Henry MD 12/18/2019 12:31 AM [facility]
--- NOTE | 2019-12-18 00:54 | ED.PDOC ---
History of Present Illness - General Chief Complaint: Problem Stated Complaint: unable to void, hx kidney stones Time Seen by Provider: 12/17/19 22:54 Source: patient, RN notes reviewed, Vital Signs reviewed, family - Son, old records - ER record 12/14/2019 - History of Present Illness Initial Comments: Patient is a 59-year-old male who presents with complaints of left flank pain and decreased urine output. Patient is known to have multiple kidney stones that he has been passing over the last few weeks. Last seen on December 14 and noted to have 2 5 mm stones in the left ureter. Patient states the pain is stabbing in nature, 10/10, constant and waxing and waning in nature. Pain radiates to his left groin. Nothing makes the pain better or worse. Timing/Duration: week Quality: severe, stabbing, throbbing, waxing/waning Onset Location: left flank Radiation: LLQ, groin Prior abdominal problems: similar symptoms Improving Factors: nothing Worsening Factors: nothing Associated Symptoms: abdominal pain, dysuria, lower back pain, urinary frequency - Patient with dribbling urination Allergies/Adverse Reactions: Allergies NO KNOWN ALLERGY Allergy (Verified 12/17/19 22:30) Home Medications: Ambulatory Orders Cranberry (Vaccinium Macrocarp [Cranberry] 300 mg PO BEDTIME 09/01/15 Glucosamine-Chondroitin [Osteo Bi-Flex Regular Str 250-200 mg] 1 tab PO BID 09/01/15 Omeprazole [Prilosec Cap] 20 mg PO BID 09/01/15 Naproxen 250 mg PO BID #10 tab 01/07/16 Cephalexin Monohydrate [Keflex] 500 mg PO Q8H #12 cap 01/20/17 Doxycycline (Rosacea) [Doxycycline] 40 mg PO BID 07/12/17 Cyclobenzaprine HCl [Flexeril] 10 mg PO Q8H PRN #30 tablet 07/20/17 HYDROcodone 5MG/APAP 325MG [[place] 5/325] 1 ea PO Q4H PRN 07/20/17 Acetaminophen W/ Codeine [Tylenol W/ CODEINE #3] 1 ea PO Q4H #20 12/18/19 Cefdinir 300 mg PO BID #14 capsule 12/18/19 Review of Systems - Review of Systems Constitutional: States: see HPI. Denies: chills, fever EENTM: States: no symptoms reported Respiratory: States: no symptoms reported Cardiology: States: no symptoms reported Gastrointestinal/Abdominal: States: see HPI, abdominal pain, nausea. Denies: constipation, diarrhea, vomiting Musculoskeletal: States: back pain - Left flank pain Skin: States: no symptoms reported Neurological: States: no symptoms reported Endocrine: States: no symptoms reported Hematologic/Lymphatic: States: no symptoms reported All other Systems: Reviewed and Negative Past Medical History (General) - Patient Medical History Hx Seizures: No Hx Stroke: No Hx Asthma: No Hx of COPD: No Hx Cardiac Disorders: No Hx Congestive Heart Failure: No Hx Pacemaker: No Hx Hypertension: Yes Hx Diabetes: No Hx Renal Disease: Yes - Prostate CA Hx Cancer: Yes - prostate Hx MRSA: No MRSA Source:: Sepsis Surgical History: cancer surgery, other - Vaccination History Hx Tetanus, Diphtheria Vaccination: Yes Hx Influenza Vaccination: Yes Hx Pneumococcal Vaccination: Yes - Social History Hx Tobacco Use: No Hx Alcohol Use: Yes - occ Hx Substance Use: No Hx Substance Use Treatment: No Hx Depression: No Hx Physical Abuse: No Hx Emotional Abuse: No - Female History Patient : No Family Medical History - Family History Mother Living Status: Still Living Hx Family Cancer: Yes Hx Family;Other: aneurysm Physical Exam - Physical Exam General Appearance: Alert, Anxious, Obvious distress, Well Developed, Well Groomed, Well Hydrated, Well Nourished Eyes, Ears, Nose, Throat Exam: PERRL/EOMI, normal ENT inspection, pharynx normal Neck: non-tender, full range of motion, supple, normal inspection Cardiovascular/Respiratory: regular rate, rhythm, no M/R/G, normal peripheral pulses, no JVD, normal breath sounds, no respiratory distress Gastrointestinal/Abdominal: normal bowel sounds, non tender, soft, no organomeg shagufta Back Exam: normal inspection, no vertebral tenderness, CVA tenderness (L) - Mild Extremity: normal range of motion, non-tender, normal inspection 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 12/18/19 01:00 Patient with minimal urine output after placement of [place] and 1 L fluid. Urinalysis is pending. CT shows 2 stones are now at the UVJ and will hopefully pass in the near future. Plan on further rehydration. Patient is comfortable after IV Toradol and IV Dilaudid. 12/18/19 01:13 Urinalysis returns that shows moderate blood. There are rare bacteria and due to the fact that the patient was instrumented with Mess[place] I plan on treating with antibiotics. Patient was given a gram of Rocephin IV and will be discharged with cefdinir. I discussed this plan of care with the patient and his son and they voiced understanding and agreement. Osmani Darden M.D. #[id number] - Results/Orders Results/Orders: 12/17/19 23:13 URINALYSIS Stat 12/18/19 00:57 Sodium Chloride 0.9% 1000ML [Ns 1000 ml] 1,000 ml IVS ONCE Laboratory Results - last 24 hr 12/17/19 12/17/19 20:02 20:02 WBC 6.9 RBC 4.18 L Hgb 12.4 L Hct 36.1 L MCV 86.4 MCH 29.5 MCHC 34.2 RDW 13.6 Plt Count 189 MPV 7.7 Absolute Neuts (auto) 4.50 Absolute Lymphs (auto) 1.60 Absolute Monos (auto) 0.50 Absolute Eos (auto) 0.20 Absolute Basos (auto) 0.00 Neutrophils % 65.2 Lymphocytes % 23.7 Monocytes % 7.4 Eosinophils % 3.2 Basophils % 0.5 Sodium 143 Potassium 3.9 Chloride 107 Carbon Dioxide 26 Anion Gap 13.9 BUN 25 H Creatinine 1.70 H BUN/Creatinine Ratio 14.7 Random Glucose 126 H Serum Osmolality 290.9 Calcium 9.0 EXAM: CT abdomen and pelvis without contrast. INDICATION: Abdominal pain, acute. TECHNIQUE: Contiguous axial CT images of the abdomen and pelvis. Intravenous contrast: Absent. Oral contrast: Absent. Protocol: Renal stone. DLP 1468 mGy-cm. This exam was performed according to our departmental dose-optimization program, which includes automated exposure contro l, adjustment of the mA and/or kV according to patient size and/or use of iterative reconstruction technique. COMPARISON: 12/14/2019. FINDINGS: Lower chest: Partially imaged. Lung bases: Unremarkable. Cardiac apex: Unremarkable. Solid abdominal viscera: Limited by lack of intravenous contrast. Liver: Unremarkable. Gallbladder: Unremarkable. Pancreas: Unremarkable. Spleen: Unremarkable. Adrenal glands: Unremarkable. Right kidney: Again noted are punctate nonobstructing stones along the upper and lower pole. Left kidney: The previously described two stones within the distal left ureter have slightly advanced into the left UVJ with the stones measuring approximately 3 mm each. There is persistent mild hydroureter and hydronephrosis. There is an additional punctate stone along the upper pole. Urinary bladder: Unremarkable. Abdominal aorta: Unremarkable. Peritoneal: Free fluid: None. Free air: None. Other: No pathologic sized lymph nodes in the upper abdomen. There is a fat-containing umbilical hernia. Bowel: Stomach: Unremarkable. Small bowel: Unremarkable. Appendix: Unremarkable. Colon: Scattered diverticula without evidence of diverticulitis. Rectum: Unremarkable. Prostate: Unremarkable. Bones: Mild grade 1 anterolisthesis of L4 over L5. Multilevel spondylosis of the lumbar spine. IMPRESSION: The previously described two 3 mm stones within the distal left ureter have slightly advanced further into the UVJ and cause grossly stable mild left-sided hydroureter and hydronephrosis. 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 12/18/19 00:57 Sodium Chloride 0.9% 1000ML [Ns 1000 ml] 1,000 ml IVS ONCE 12/18/19 01:04 cefTRIAXone SODIUM [Rocephin] 1 gm Sodium Chl 0.9% 50Ml Min-Bag+ [NS 50ml MINI-BAG+] 50 ml IVPB ONCE Laboratory Results - last 24 hr 12/17/19 12/17/19 12/18/19 20:02 20:02 00:45 WBC 6.9 RBC 4.18 L Hgb 12.4 L Hct 36.1 L MCV 86.4 MCH 29.5 MCHC 34.2 RDW 13.6 Plt Count 189 MPV 7.7 Absolute Neuts (auto) 4.50 Absolute Lymphs (auto) 1.60 Absolute Monos (auto) 0.50 Absolute Eos (auto) 0.20 Absolute Basos (auto) 0.00 Neutrophils % 65.2 Lymphocytes % 23.7 Monocytes % 7.4 Eosinophils % 3.2 Basophils % 0.5 Sodium 143 Potassium 3.9 Chloride 107 Carbon Dioxide 26 Anion Gap 13.9 BUN 25 H Creatinine 1.70 H BUN/Creatinine Ratio 14.7 Random Glucose 126 H Serum Osmolality 290.9 Calcium 9.0 Urine Color Yellow Urine Appearance Sl cloudy Urine pH 5.5 Ur Specific [place] >= 1.030 Urine Protein 100 H Urine Glucose (UA) Negative Urine Ketones Negative Urine Blood Moderate H Urine Nitrite Negative Urine Bilirubin Negative Urine Urobilinogen 0.2 Ur Leukocyte Esterase Negative Urine RBC 20-30 H Urine WBC 0 Ur Epithelial Cells 1-3 Urine Bacteria Rare Departure - Departure Clinical Impression: Ureterolithiasis, Renal insufficiency, mild, Dehydration, Bacteria in urine Time of Disposition: Disposition: Discharge to Home or Self Care Condition: Good Departure Forms: ED Discharge - Pt. Copy, Patient Portal Self Enrollment Instructions: DI for Kidney Stones, DI for Urinary Retention in Men Referrals: Regis Plaza III, MD [Primary Care Provider] - 1-2 Weeks Prescriptions: Acetaminophen W/ Codeine [Tylenol W/ CODEINE #3] 1 ea PO Q4H #20 Cefdinir 300 mg PO BID #14 capsule Home Medications: Ambulatory Orders Cranberry (Vaccinium Macrocarp [Cranberry] 300 mg PO BEDTIME 09/01/15 Glucosamine-Chondroitin [Osteo Bi-Flex Regular Str 250-200 mg] 1 tab PO BID 09/01/15 Omeprazole [Prilosec Cap] 20 mg PO BID 09/01/15 Naproxen 250 mg PO BID #10 tab 01/07/16 Cephalexin Monohydrate [Keflex] 500 mg PO Q8H #12 cap 01/20/17 Doxycycline (Rosacea) [Doxycycline] 40 mg PO BID 07/12/17 Cyclobenzaprine HCl [Flexeril] 10 mg PO Q8H PRN #30 tablet 07/20/17 HYDROcodone 5MG/APAP 325MG [[place] 5/325] 1 ea PO Q4H PRN 07/20/17 Acetaminophen W/ Codeine [Tylenol W/ CODEINE #3] 1 ea PO Q4H #20 12/18/19 Cefdinir 300 mg PO BID #14 capsule 12/18/19 Additional Instructions: Follow-up with your urologist as soon as possible.
[2019-12-18] MEDS: SODIUM CHLORIDE 0.9% 1000ML 1,000 ML IVS ONE (00:58)
[2019-12-18] MEDS ORDERED: cefTRIAXone SODIUM 1 GM VIAL ONE (01:16)
[2019-12-18] MEDS ORDERED: SODIUM CHL 0.9% 50ML MIN-BAG+ 50 ML IVPB ONE (01:16)
[2019-12-18] MEDS: cefTRIAXone SODIUM 1 GM in SODIUM CHL 0.9% 50ML MIN-BAG+ 50 ML IVPB ONE (01:18)
[2019-12-18 01:58] VITALS: BP 159/82; TEMP 97.8; O2SAT 98
== END 2019-12-18 01:58 | disposition home or self-care (01) ==
LOC: ER 22:23
DX: N13.2 Hydronephrosis with renal and ureteral calculous obstruction (principal); E86.0 Dehydration; R82.71 Bacteriuria; N28.9 Disorder of kidney and ureter, unspecified; I10 Essential (primary) hypertension; Z85.46 Personal history of malignant neoplasm of prostate; Z79.899 Other long term (current) drug therapy; Z87.442 Personal history of urinary calculi
CPT/HCPCS: 36415; 74176; 80048; 81001; 85025; J0696; J1170; J1885; J2405; J7030; J7050

== ENCOUNTER → 2019-12-24 | Outpatient (CLI) | payer BC ==
--- NOTE | 2019-12-24 10:32 | RAD ---
EXAM DESCRIPTION: Chest,2 Views CLINICAL HISTORY: PNEUMONIA COMPARISON: Previous study June 21, 2017 TECHNIQUE: PA/lateral FINDINGS: There is no acute appearing cardiac or pulmonary abnormality. Heart size is normal with normal pulmonary vascularity. No pleural effusion or pneumothorax. Patchy increased density is seen in the lower lobe region overlying the T-spine on the lateral view. On the frontal view, infiltrate may be in the left lung base. Findings would suggest mild pneumonia. Lateral view shows intact sternum and T-spine. IMPRESSION: Left lower lobe infiltrate consistent with pneumonia. Electronically signed by: Sai Patel MD 12/24/2019 10:30 AM [facility]
== END ==
LOC: YCFC.O 09:56
PROVIDERS: ATTEND Family Medicine
DX: J06.9 Acute upper respiratory infection, unspecified (principal); R91.8 Other nonspecific abnormal finding of lung field; R79.89 Other specified abnormal findings of blood chemistry

== ENCOUNTER → 2020-01-01 | Outpatient (CLI) | payer BC | LOC: YCFC.O 11:58 | PROVIDERS: ATTEND Family Medicine | DX: Z85.46 Personal history of malignant neoplasm of prostate (principal); R79.89 Other specified abnormal findings of blood chemistry ==

== ENCOUNTER 2020-06-03 22:43 | Emergency (ER) | payer BC ==
--- NOTE | 2020-06-03 22:46 | ED.PDOC ---
History of Present Illness - General Time Seen by Provider: 06/03/20 22:45 Source: patient - History of Present Illness Initial Comments: 59-year-old male who presents with chief complaint of possible snake bite to the right second toe which occurred approximately 40 minutes prior to arrival at his home. Reports he was walking in the dark through the grass in flip-flops when he felt something suddenly sting him on the dorsal aspect of the right second toe. He did not see what it was that bit him. Reports immediate sharp stinging pain. States that the pain has been constant since onset but overall pretty mild in nature, rates as 3/10 severity on arrival, does report that he has had rapid development of some swelling of the toe and the distal aspect of the dorsal right foot. The pain is also beginning to radiate up the right lower extremity some. He took Benadryl 50 mg p.o. prior to arrival without much noted improvement. Denies any redness, warmth, numbness/tingling, color change, weakness. Denies any fevers, chills, chest pain, dyspnea, cough, abdominal pain, nausea/vomiting/diarrhea. No history of anaphylaxis or severe reactions to insect or snake bites. Patient states that he has seen several copperhead snakes in the same field in the past. Allergies/Adverse Reactions: Allergies NO KNOWN ALLERGY Allergy (Verified 12/17/19 22:30) Home Medications: Ambulatory Orders RX: Cranberry (Vaccinium Macrocarp [Cranberry] 300 mg PO BEDTIME 09/01/15 RX: Glucosamine-Chondroitin [Osteo Bi-Flex Regular Str 250-200 mg] 1 tab PO BID 09/01/15 RX: Omeprazole [Prilosec Cap] 20 mg PO BID 09/01/15 RX: Naproxen 250 mg PO BID #10 tab 01/07/16 RX: Cephalexin Monohydrate [Keflex] 500 mg PO Q8H #12 cap 01/20/17 RX: Doxycycline (Rosacea) [Doxycycline] 40 mg PO BID 07/12/17 RX: Cyclobenzaprine HCl [Flexeril] 10 mg PO Q8H PRN #30 tablet 07/20/17 RX: HYDROcodone 5MG/APAP 325MG [[place] 5/325] 1 ea PO Q4H PRN 07/20/17 Acetaminophen W/ Codeine [Tylenol W/ CODEINE #3] 1 ea PO Q4H #20 12/18/19 RX: Cefdinir 300 mg PO BID #14 capsule 12/18/19 Review of Systems - Review of Systems Review of Systems: 06/04/20 00:05 As per HPI All other Systems: Reviewed and Negative Past Medical History (General) - Patient Medical History Hx Seizures: No Hx Stroke: No Hx Asthma: No Hx of COPD: No Hx Cardiac Disorders: No Hx Congestive Heart Failure: No Hx Pacemaker: No Hx Hypertension: Yes Hx Diabetes: No Hx Renal Disease: Yes - Prostate CA Hx Cancer: Yes - prostate Hx MRSA: No MRSA Source:: Sepsis - Vaccination History Hx Tetanus, Diphtheria Vaccination: Yes Hx Influenza Vaccination: Yes Hx Pneumococcal Vaccination: Yes - Social History Hx Tobacco Use: No Hx Alcohol Use: Yes - occ Hx Substance Use: No Hx Substance Use Treatment: No Hx Depression: No Hx Physical Abuse: No Hx Emotional Abuse: No - Female History Patient : No Family Medical History - Family History Mother Living Status: Still Living Hx Family Cancer: Yes Hx Family;Other: aneurysm Physical Exam - Physical Exam General Appearance: Alert, Comfortable, No apparent distress Eye Exam: bilateral normal Ears, Nose, Throat: hearing grossly normal, normal ENT inspection Neck: non-tender, full range of motion, supple, normal inspection Respiratory: lungs clear, normal breath sounds, no respiratory distress, no accessory muscle use Cardiovascular/Chest: normal peripheral pulses, regular rate, rhythm, no edema, no gallop, no JVD, no murmur Peripheral Pulses: radial,right: 2+, radial,left: 2+ Gastrointestinal/Abdominal: non tender, soft, no organomegaly Back Exam: normal inspection, no CVA tenderness, no vertebral tenderness Extremity: normal range of motion, other - To the right dorsal distal second toe there is an approximately 1 mm superficial puncture bite wound without any surrounding redness/warmth. There is moderate loose swelling of the entire right second toe and also involves approximately 8 cm proximally of the dorsal right foot, moderate slightly tense pitting edema without warmth/redness. There is minimal tenderness to palpation throughout the dorsal swollen aspects of the foot. PT and DP pulses are 2+ and equal bilaterally. Strength and sensation is intact throughout. 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 -Localized swelling on arrival but without any warmth/erythema. Patient is hemodynamically stable upon arrival. Neurovascularly intact throughout. Pain is pretty minimal. -Poison control consulted shortly after patient arrival (Case #[id number]). They advise lab work, chest x-ray, EKG, cardiac monitoring, every 15 minute checks of the right foot to monitor progression of swelling/erythema/neurovascular status. They do not recommend antivenom at this time. However, if symptoms rapidly progress they advised to call back for further instruction. They advised to observe for 6 to 8 hours and repeat labs at the end of the observation if initially normal. Pain control with IV opioids and IV normal saline bolus is advised. Tetanus immunization is advised, which we will give as the patient has been greater than 5 years since his last. 06/04/20 02:09 -Patient remains stable. Swelling is unchanged. Examination is unchanged. Initial labs largely unremarkable. Fibrinogen level unable to be tested given elevated fat content in the blood. We will plan on repeat lab evaluation in 2 hours and if reassuring we will plan to discharge home in good condition. 06/04/20 05:00 -Patient remained stable throughout his ED stay. Swelling to the right foot remains largely unchanged. Vital signs stable. Pain well controlled. Repeat CBC and coags remain unremarkable. Will discharge to home in good condition, return warnings discussed at length. Advised close follow-up with primary care physician and recommend outpatient follow-up for repeat blood pressure check and cholesterol level check. Jose Rodriguez MD Billing #[id number] 06/03/20 22:46 IV Care:Saline Lock per Protoc QSHIFT Telemetry .ONCE 06/03/20 23:00 EKG STAT Laboratory Results - last 24 hr 06/03/20 06/03/20 06/03/20 23:05 23:05 23:05 WBC 6.9 RBC 4.70 Hgb 14.0 Hct 40.4 L MCV 86.0 MCH 29.7 MCHC 34.5 RDW 14.3 Plt Count 203 MPV 7.9 Absolute Neuts (auto) 4.20 Absolute Lymphs (auto) 2.00 Absolute Monos (auto) 0.50 Absolute Eos (auto) 0.20 Absolute Basos (auto) 0.00 Neutrophils % 60.8 Lymphocytes % 29.2 Monocytes % 6.5 Eosinophils % 3.1 Basophils % 0.4 PT 9.6 INR < 1.00 PTT (SP) 24.6 Fibrinogen Not Reportable Sodium 143 Potassium 3.7 Chloride 108 Carbon Dioxide 26 Anion Gap 12.7 BUN 16 Creatinine 1.14 BUN/Creatinine Ratio 14.0 Random Glucose 147 H Serum Osmolality 288.9 Calcium 8.9 Total Bilirubin 0.4 AST 23 ALT 31 Alkaline Phosphatase 49 Creatine Kinase Troponin I Serum Total Protein 7.0 Albumin 4.4 Globulin 2.6 Albumin/Globulin Ratio 1.7 Urine Color Urine Appearance Urine pH Ur Specific [place] Urine Protein Urine Glucose (UA) Urine Ketones Urine Blood Urine Nitrite Urine Bilirubin Urine Urobilinogen Ur Leukocyte Esterase Urine RBC Urine WBC Ur Epithelial Cells Urine Bacteria 06/03/20 06/03/20 06/03/20 23:05 23:05 23:37 WBC RBC Hgb Hct MCV MCH MCHC RDW Plt Count MPV Absolute Neuts (auto) Absolute Lymphs (auto) Absolute Monos (auto) Absolute Eos (auto) Absolute Basos (auto) Neutrophils % Lymphocytes % Monocytes % Eosinophils % Basophils % PT INR PTT (SP) Fibrinogen Sodium Potassium Chloride Carbon Dioxide Anion Gap BUN Creatinine BUN/Creatinine Ratio Random Glucose Serum Osmolality Calcium Total Bilirubin AST ALT Alkaline Phosphatase Creatine Kinase 106 Troponin I < 0.02 Serum Total Protein Albumin Globulin Albumin/Globulin Ratio Urine Color Yellow Urine Appearance Clear Urine pH 5.5 Ur Specific [place] 1.025 Urine Protein Negative Urine Glucose (UA) Negative Urine Ketones 15 H Urine Blood Trace-intact H Urine Nitrite Negative Urine Bilirubin Negative Urine Urobilinogen 0.2 Ur Leukocyte Esterase Negative Urine RBC 0-1 Urine WBC 0 Ur Epithelial Cells 0 Urine Bacteria 0 06/04/20 06/04/20 03:43 03:43 WBC 6.2 RBC 4.21 L Hgb 12.4 L Hct 36.7 L MCV 87.2 MCH 29.6 MCHC 33.9 RDW 14.0 Plt Count 169 MPV 8.4 Absolute Neuts (auto) 3.40 Absolute Lymphs (auto) 2.00 Absolute Monos (auto) 0.50 Absolute Eos (auto) 0.20 Absolute Basos (auto) 0.00 Neutrophils % 55.5 Lymphocytes % 32.9 Monocytes % 7.3 Eosinophils % 3.7 Basophils % 0.6 PT 9.8 INR < 1.00 PTT (SP) 25.2 Fibrinogen 297 Sodium Potassium Chloride Carbon Dioxide Anion Gap BUN Creatinine BUN/Creatinine Ratio Random Glucose Serum Osmolality Calcium Total Bilirubin AST ALT Alkaline Phosphatase Creatine Kinase Troponin I Serum Total Protein Albumin Globulin Albumin/Globulin Ratio Urine Color Urine Appearance Urine pH Ur Specific [place] Urine Protein Urine Glucose (UA) Urine Ketones Urine Blood Urine Nitrite Urine Bilirubin Urine Urobilinogen Ur Leukocyte Esterase Urine RBC Urine WBC Ur Epithelial Cells Urine Bacteria - EKG/XRAY/CT EKG: Sinus - Normal sinus rhythm, heart rate 80, no ST elevations or Q waves noted, axis normal, intervals normal, appears largely unchanged from 06/21/2017 EKG. XRAY: chest - No acute processes per my read Departure - Departure Clinical Impression: Bite wound Time of Disposition: 04:30 Disposition: Discharge to Home or Self Care Condition: Good Departure Forms: ED Discharge - Pt. Copy, Patient Portal Self Enrollment Instructions: DI for Insect Bites and Stings Diet: resume usual diet Activity: increase activity as tolerated Referrals: Regis Plaza III, MD [Primary Care Provider] - 1-2 Weeks Home Medications: Ambulatory Orders RX: Cranberry (Vaccinium Macrocarp [Cranberry] 300 mg PO BEDTIME 09/01/15 RX: Glucosamine-Chondroitin [Osteo Bi-Flex Regular Str 250-200 mg] 1 tab PO BID 09/01/15 RX: Omeprazole [Prilosec Cap] 20 mg PO BID 09/01/15 RX: Naproxen 250 mg PO BID #10 tab 01/07/16 RX: Cephalexin Monohydrate [Keflex] 500 mg PO Q8H #12 cap 01/20/17 RX: Doxycycline (Rosacea) [Doxycycline] 40 mg PO BID 07/12/17 RX: Cyclobenzaprine HCl [Flexeril] 10 mg PO Q8H PRN #30 tablet 07/20/17 RX: HYDROcodone 5MG/APAP 325MG [[place] 5/325] 1 ea PO Q4H PRN 07/20/17 Acetaminophen W/ Codeine [Tylenol W/ CODEINE #3] 1 ea PO Q4H #20 12/18/19 RX: Cefdinir 300 mg PO BID #14 capsule 12/18/19 Additional Instructions: Continue keeping the affected extremity elevated as often as possible and applying cold packs for 15 to 20 minutes every 1-2 hours for the next 2 to 3 days to help limit pain and swelling. He may continue to take ibuprofen 600 mg every 6 hours and Tylenol 650 mg every 6 hours as needed for pain and swelling as well. Return to the ED if your swelling rapidly worsens or if you develop any other concerning symptoms such as redness/warmth/rapidly worsening pain to the area, etc. Follow-up with your primary care physician in the next 1 to 2 weeks or sooner as needed. You may need repeat evaluation of your cholesterol levels through your primary care physician and repeat evaluation of your blood pressure at your next clinic visit.
--- NOTE | 2020-06-03 23:06 | RAD ---
EXAM DESCRIPTION: Chest,1 View CLINICAL HISTORY: 59 years Male, possible snake bite on leg COMPARISON: 12/24/2019 FINDINGS: The heart and mediastinum are within normal limits. The lung jeronimo are clear of active infiltrates. The pulmonary vascularity is unremarkable. No active pleural disease is present. IMPRESSION: 1. Normal study. Electronically signed by: Britton Dumont MD 06/03/2020 11:04 PM CDT
[2020-06-03] MEDS: SODIUM CHLORIDE 0.9% (FLUSH) 10 ML SYG IV PRN (23:36)
[2020-06-03] MEDS: SODIUM CHLORIDE 0.9% 1000ML 1,000 ML IVS PRN (23:37)
[2020-06-03] MEDS: KETOROLAC TROMETHAMINE INJ 30 MG/ML VIAL IV ONE (23:37)
[2020-06-03] MEDS: TETANUS,DIPHTHERIA,PERTUSSIS 1 EA SYG IM ONE (23:55)
[2020-06-04] MEDS: MORPHINE SULFATE INJ 10 MG/ML VIAL IV ONE (00:01)
[2020-06-04] MEDS: ONDANSETRON INJ 4 MG/2 ML VIAL IV ONE (00:01)
[2020-06-04 04:40] VITALS: BP 118/72; O2SAT 98
[2020-06-04 04:42] VITALS: TEMP 96.3
== END 2020-06-04 04:42 | disposition home or self-care (01) ==
LOC: ER 22:43
DX: S91.154A Open bite of right lesser toe(s) without damage to nail, initial encounter (principal); M79.89 Other specified soft tissue disorders; R60.9 Edema, unspecified; Z85.46 Personal history of malignant neoplasm of prostate; I10 Essential (primary) hypertension; W57.XXXA Bitten or stung by nonvenomous insect and other nonvenomous arthropods, initial encounter; Y92.9 Unspecified place or not applicable
CPT/HCPCS: 36415; 71045; 80053; 81001; 82550; 84484; 85025; 85384; 85610; 85730; 90471; 90715; 93005; A4216; J1885; J2270; J2405; J7030

== ENCOUNTER 2020-10-07 05:40 | Day surgery (SDC) | payer BC ==
[2020-10-07] MEDS ORDERED: LACTATED RINGERS 1,000 ML ONE (06:45)
[2020-10-07] MEDS ORDERED: MAGNESIUM SULFATE INJ 1 GM/2 ML VIAL ONE (07:00)
[2020-10-07] MEDS ORDERED: DEXAMETHASONE INJ 10 MG/ML VIAL ONE (07:00)
[2020-10-07] MEDS ORDERED: diphenhydrAMINE HCL 50 MG/ML VIAL ONE (07:00)
[2020-10-07] MEDS ORDERED: LIDOCAINE 1% 10 ML VIAL INJ ONE (07:00)
[2020-10-07] MEDS ORDERED: PROPOFOL 200 MG/20 ML VIAL IV ONE (07:00)
[2020-10-07] MEDS ORDERED: BUPIVACAINE 0.5% W/EPI 30 ML VIAL INJ ONE ×2 (07:30→10:00)
[2020-10-07] MEDS ORDERED: ceFAZolin SODIUM 1 GM VIAL ONE (09:29)
[2020-10-07] MEDS ORDERED: SODIUM CHL 0.9% 100ML MINI-BAG 100 ML IVPB ONE (09:29)
[2020-10-07] MEDS ORDERED: MIDAZOLAM INJ 2 MG/2 ML VIAL ONE (09:50)
[2020-10-07] MEDS ORDERED: KETAMINE HCL 100 MG/ML VIAL ONE (09:50)
[2020-10-07] MEDS ORDERED: fentaNYL CITRATE INJ 50 MCG/ML 2 ML AMP ONE (09:50)
[2020-10-07] MEDS ORDERED: FAMOTIDINE INJ 10 MG/ML VIAL IV ONE (09:51)
[2020-10-07] MEDS ORDERED: hydrALAZINE HCl 20 MG/ML VIAL ONE (10:48)
[2020-10-07] MEDS ORDERED: hydrALAZINE HCl 20 MG/ML VIAL IV ONE (10:49)
--- NOTE | 2020-10-07 10:55 | OP ---
DATE OF PROCEDURE: 10/07/20 PREOPERATIVE DIAGNOSIS: 1. Umbilical hernia. POSTOPERATIVE DIAGNOSIS: 1. Incarcerated umbilical hernia. PROCEDURE: 1. Repair of incarcerated umbilical hernia with medium Ventralex mesh. SURGEON: Vadim Matson MD. ANESTHESIA: General and local. FINDINGS: He had an approximately 3 cm defect with incarcerated omentum that was all reduced. COMPLICATIONS: None. ESTIMATED BLOOD LOSS: Minimal. SPECIMEN: None. CONDITION: Stable. PLAN: Discharge. INDICATION: As stated. PROCEDURE: General anesthesia was induced. He was prepped and draped in sterile fashion. Infraumbilical incision was made after injecting local anesthesia. Subcutaneous tissues were taken down. We preserved the superior portion of the sac on the umbilical skin to avoid the very thin skin that would likely become ischemic. The sac was removed inferiorly. There were adhesions of the incarcerated omentum onto the sac. These were removed and the omentum was able to be reduced. It was freed from adhesions around the fascial edge. Once the fascial edge was completely clear, the 2.5-inch Ventralex was placed. The tail was grasped. It was closed transversely with interrupted 0 PDS sutures. The center 3 grabbed the base of the tail. The tail was then trimmed and buried and as we closed all the sutures. It looked like an excellent closure. Local anesthesia was placed around the fascia. The umbilicus was tacked down. An additional layer of 3-0 Monocryl was used to close the space and the skin was closed with 4-0 Monocryl. He tolerated the procedure. He was awakened and taken to Recovery to be discharged. #[id number] cc: Regis Plaza MD [facility]
[2020-10-07] MEDS ORDERED: HYDROcodone 5MG/APAP 325MG 1 EA TAB ONE ×2 (11:41→11:43)
[2020-10-07] MEDS ORDERED: HYDROcodone 5MG/APAP 325MG 1 EA TAB PO ONE (11:43)
[2020-10-07 13:34] VITALS: BP 146/94; TEMP 97.3; O2SAT 98
== END 2020-10-07 12:00 | disposition home or self-care (01) ==
LOC: AMB 05:40
PROVIDERS: ATTEND Surgery
DX: K42.0 Umbilical hernia with obstruction, without gangrene (principal); I10 Essential (primary) hypertension; E66.9 Obesity, unspecified; Z68.33 Body mass index [BMI] 33.0-33.9, adult; Z88.8 Allergy status to other drugs, medicaments and biological substances; Z96.653 Presence of artificial knee joint, bilateral
CPT/HCPCS: 00830; 36415; 49587; 80048; 85025; J0360; J0690; J1100; J1200; J2250; J3010; J3475; J3490; J7050; J7120